=== PATIENT | male | born 1955 | race Caucasian/White ===

== ENCOUNTER 2016-10-22 05:22 | Day surgery (SDC) | payer MEDICAID ==
[~2016-10-22] VITALS: Ht 175.3 cm; Wt 138.8 kg
[2016-10-22 06:17] VITALS: Ht 175.3 cm; Wt 138.8 kg
[2016-10-22] MEDS ORDERED: GEMFIBROZIL600 MG PO (06:21)
[2016-10-22] MEDS ORDERED: NORVASC10 MG PO (06:48)
[2016-10-22] MEDS ORDERED: ZITHROMAX250 MG PO (06:49)
[2016-10-22] MEDS ORDERED: AUGMENTIN 875-11 TAB PO (06:49)
[2016-10-22] MEDS ORDERED: VIBRAMYCIN 100100 MG PO (06:49)
[2016-10-22] MEDS ORDERED: LEVOTHYROXINE50 MCG PO (06:50)
[2016-10-22] MEDS ORDERED: COZAAR50 MG PO (06:50)
[2016-10-22 06:51] LABS: HEMOGLOBIN 15.4 g/dL (13.5-17.5); MCH 30.5 pg (26.0-34.0); MCHC 33.5 g/dL (31.0-37.0); MCV 91.1 fL (80.0-100.0); MEAN PLATELET VOLUME 9.8 fL (7.4-10.4); RBC 5.05 10x6/uL (4.20-6.10); RDW 12.6 % (11.5-14.5); WBC 7.4 10x3/uL (4.8-10.8)
[2016-10-22] MEDS ORDERED: CARBINOXAMIN PO (06:52)
[2016-10-22] MEDS ORDERED: POLYTRIM EYE DR10 ML EACH EYE (06:52)
[2016-10-22] MEDS ORDERED: GLIPIZIDE10 MG PO (06:53)
[2016-10-22] MEDS ORDERED: PROMETHAZINE W473 M1 PO (06:53)
[2016-10-22] MEDS ORDERED: TRADJENTA5 MG PO (06:53)
[2016-10-22] MEDS ORDERED: GLUCOPHAGE500 MG PO (06:54)
[2016-10-22] MEDS ORDERED: HYTRIN10 MG PO (06:54)
[2016-10-22] MEDS ORDERED: METOPROLOL TART50 MG PO (06:54)
[2016-10-22 07:10] LABS: ANION GAP 16.6 mmol/L (8-16); CALCIUM 9.1 mg/dL (8.5-10.1); CARBON DIOXIDE 26.2 mmol/L (21.0-32.0); CREATININE - SERUM 1.2 mg/dL (0.6-1.3); POTASSIUM - SERUM 4.8 mmol/L (3.5-5.1)
--- NOTE | 2016-10-22 15:53 | NUR ---
0935 AWAKE & ALERT DRESSED, SITIING UP AT BEDSIDE. GIVEN DISCHARGE INFORMATION INCLUDING: MED REC, HIGH FIBER DIET HANDOUT, & D/C INSTRUCTIONS SHEET POST ENDOSCOPIC PROCEDURES. PT VOICED UNDERSTANDING. TO FRONT ENTRANCE OF HOSPITAL PER WHEELCHAIR BY VOLUNTEER FOR [facility] CALLED FOR BY THIS NURSE. PT STATED EARLIER (POST PROCEDURE) IT WAS HIS SOURCE OF TRANSPORTATION HOME. Shay CONNER R.N.
== END 2016-10-22 09:35 | disposition home or self-care (01) ==
LOC: D.OPS 05:22
PROVIDERS: Anesthesiology
DX: Z12.11 Encounter for screening for malignant neoplasm of colon (principal); Z01.812 Encounter for preprocedural laboratory examination

== ENCOUNTER → 2020-05-25 07:42 | Outpatient (CLI) | payer MEDICAID ==
[2016-10-22 06:17] VITALS: BMI 45.3
[~2020-05-25 07:42] MED LIST: AUGMENTIN 875-11 TAB PO; CARBINOXAMIN PO; COZAAR50 MG PO; GEMFIBROZIL600 MG PO; GLIPIZIDE10 MG PO; GLUCOPHAGE500 MG PO; HYTRIN10 MG PO; LEVOTHYROXINE50 MCG PO; METOPROLOL TART50 MG PO; NORVASC10 MG PO; POLYTRIM EYE DR10 ML EACH EYE; PROMETHAZINE W473 M1 PO; TRADJENTA5 MG PO; VIBRAMYCIN 100100 MG PO; ZITHROMAX250 MG PO
== END | disposition home or self-care (01) ==
LOC: D.NM 05-10 08:00
PROVIDERS: ATTEND Family Medicine Adult Medicine
DX: K82.9 Disease of gallbladder, unspecified (principal)

== ENCOUNTER → 2020-07-06 08:10 | Outpatient (CLI) | payer MEDICAID ==
[2016-10-22 06:17] VITALS: BMI 45.3
[2020-07-06 08:45] LABS: AMYLASE - SERUM 59 U/L (25-115); LIPASE 279 U/L (73-393)
== END | disposition home or self-care (01) ==
LOC: D.LAB 08:10
PROVIDERS: ATTEND Internal Medicine Gastroenterology
DX: R19.7 Diarrhea, unspecified (principal); R92.1 Mammographic calcification found on diagnostic imaging of breast